=== PATIENT | male | born 1930 | race Caucasian/White ===

== ENCOUNTER 2017-10-20 10:10 | Outpatient (CLI) | payer MEDICARE, BC ==
[2017-10-20] MEDS ORDERED: Iopamidol 370 76% 100 ML VIAL ONE (16:55)
== END 2017-10-20 10:11 | disposition home or self-care (01) ==
LOC: BICCT 10:10
PROVIDERS: ATTEND Family Medicine
DX: R42 Dizziness and giddiness (principal); I65.01 Occlusion and stenosis of right vertebral artery; I67.82 Cerebral ischemia
CPT/HCPCS: 36415; 70496; 82565

== ENCOUNTER 2020-06-21 06:58 | Outpatient (CLI) | payer MEDICARE, BC, OTHER ==
[2020-06-22 12:05] LABS: SARS-CoV-2 MS2 Positive; SARS-CoV-2 N Gene Negative; SARS-CoV-2 S Gene Negative; SARS-CoV-2 by NAA Not Detected (NotDetected); SARS-CoV-2 orf1ab Negative
== END 2020-06-21 06:59 | disposition home or self-care (01) ==
LOC: LABBT 06:58
PROVIDERS: ATTEND Neurological Surgery
DX: M54.12 Radiculopathy, cervical region (principal); Z20.828 Contact with and (suspected) exposure to other viral communicable diseases
CPT/HCPCS: 87635; U0003

== ENCOUNTER 2020-06-26 06:31 | Day surgery (SDC) | payer MEDICARE, BC ==
[2020-06-25 08:52] VITALS: BMI 23.6
--- NOTE | 2020-06-25 22:22 | HP ---
HISTORY OF PRESENT ILLNESS: Mr. Bergman is a very pleasant 89-year-old man referred to us for evaluation by Dr. Hernandez. He and family report that roughly over the last 8 months He has had a steady decline neurologically where over the last couple of months he started to have profound gait unsteadiness with increasing number of falls. 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 He does report numbness in all 4 extremities and weakness in his legs. Dr. Hernandez has been treating him for pain issues. However, MRIs given development of diffuse weakness. MRI of the brain, thoracic and lumbar spine all appeared appropriate with no significant pathology. However, on cervical spine this critically severe cervical spinal stenosis C5-C7 with signal change in the lower levels. This most certainly is the problem. PHYSICAL EXAMINATION: Deferred. PAST MEDICAL HISTORY: Anemia, hypercholesterolemia, arthritis, glaucoma, migraines, hypertension. PAST SURGICAL HISTORY: Unspecified foot surgery, prostate cancer resection, cataract resection, carotid endarterectomy. MEDICATIONS: 1. Simvastatin. 2. Amlodipine. 3. Metoprolol. 4. Famotidine. ALLERGIES: NO KNOWN DRUG ALLERGIES. ASSESSMENT: Cervical myelopathy. PLAN: Dr. Palcaio met with the patient advocated for C5-C7 ACDF. He explained the patient risks, benefits, and alternatives to the procedure. The patient expressed understanding and elected to move forward with surgery as discussed. I do believe the patient is mentally competent and capable of making medical decisions for himself. We will move forward with surgery as planned. Job ID: [id number]
[2020-06-26] MEDS ORDERED: Thrombin 5000 UNITS/5 ML VIAL ONE (07:09)
[2020-06-26 07:11] LABS: #Basophils 0.2 thou/uL (0.0-0.2); #Eosinphils 0.4 thou/uL (0.0-0.7); #Lymphocytes 4.1 thou/uL (1.20-3.40); #Monocytes 0.7 thou/uL (0.11-0.59); #Neutrophils 4.7 thou/uL (1.40-6.50); %Basophils 2.2 % (0.0-1.0); %Eosinophils 3.5 % (0.0-10.0); %Lymphocytes 40.8 % (21.0-51.0); %Monocytes 7.3 % (0.0-10.0); %Neutrophils 46.2 % (42.0-75.0); Hemoglobin 13.5 g/dL (14.0-18.0); Mean Corpuscular HGB CONC 32.1 g/dL (32.0-36.0); Mean Corpuscular Hemoglobin 30.4 pg (27.0-31.0); Mean Corpuscular Volume 94.8 fL (78.0-98.0); Mean Platelet Volume 6.9 fL (7.4-10.4); Platelet Count 209 thou/uL (130-400); RBC Distribution Width 11.7 % (11.5-14.5); Red Blood Cell (RBC) Count 4.46 mill/uL (4.70-6.10); White Blood Cell (WBC) Count 10.1 thou/uL (4.8-10.8)
[2020-06-26 07:34] LABS: Anion Gap 13 mmol/L (10-20); BUN (Urea Nitrogen) 25 mg/dL (8.4-25.7); Calc. Creatinine Clearance 35 mL/min (70-130); Calcium 8.9 mg/dL (7.8-10.44); Carbon Dioxide 27 mmol/L (23-31); Chloride 105 mmol/L (98-107); Estimated GFR-MDRD 50; Glucose 103 mg/dL (83-110); Potassium 3.6 mmol/L (3.5-5.1); Sodium 141 mmol/L (136-145)
[2020-06-26] MEDS ORDERED: Fentanyl 100 MCG/2 ML VIAL ONE ×2 (09:03→10:18)
[2020-06-26] MEDS ORDERED: EPHEDRINE 25 MG/5 ML SYRINGE ONE (09:41)
[2020-06-26] MEDS ORDERED: Dexamethasone 20 MG/5 ML VIAL ONE (09:41)
[2020-06-26] MEDS ORDERED: Ondansetron PF 4 MG/2 ML Vial ONE (09:41)
[2020-06-26] MEDS ORDERED: PROPOFOL 200 MG/20 ML VIAL ONE (09:41)
[2020-06-26] MEDS ORDERED: Rocuronium Bromide 10 MG/ML (10ML VIAL) ONE (09:41)
[2020-06-26] MEDS ORDERED: Lidocaine 1% PF 5 ML VIAL ONE (09:41)
[2020-06-26] MEDS ORDERED: Glycopyrrolate 0.2 MG/ML 5 ML SYRINGE ONE (09:41)
--- NOTE | 2020-06-26 10:20 | OP ---
DATE OF PROCEDURE: 06/26/2020 CABLE ASSEMBLER AND SWAGER: Remi Barrera PA-C INDICATION: Prevent neurologic decline. 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 PROCEDURE PERFORMED: Anterior cervical diskectomy and fusion, C5-C7. ANESTHESIA: General. DESCRIPTION OF PROCEDURE: The patient was brought into the operating room and placed under general anesthesia. He was placed carefully on the table in a neutral position. A transverse incision was planned over the lateral aspect of the neck on the right. After prepping and draping and after an appropriate preoperative pause, the incision was created. The underlying platysma muscles were identified and incised. A blunt tissue plane anterior to the sternocleidomastoid muscle was used to gain access to the prevertebral space. Self-retaining retractors were placed to the wound for optimal exposure. After confirming the appropriate level with C-arm fluoroscopy, an annulotomy was performed in the C6-C7 disk space. Distraction pins were placed at C6 and C7 in the space, placed under slight degree of distraction. After removing the disk material as well as anterior and posterior osteophytes, a 6-mm lordotic PEEK cage packed with allograft and autograft material was placed in the interbody space. We then redirected our attention to level above at C5-C6, where again an annulotomy was performed with distraction pins present. Disk material and anterior and posterior osteophytes were carefully removed until the underlying thecal sac was decompressed. After completing the decompression, a 6-mm lordotic PEEK cage packed with allograft and autograft material was placed in the interbody space. A separate plate was then fashioned for the front of the spine and secured with a total of 6 screws. Midline and lateral structures were inspected and found to be free from significant trauma. The wound was irrigated. Hemostasis was maintained throughout. The wound was then closed in anatomic layers, and a pressure dressing was applied. There were no known procedural complications. Job ID: [id number]
[2020-06-26] MEDS ORDERED: Tamsulosin HCl 0.4 MG CAP ONE (10:30)
[2020-06-26] MEDS ORDERED: HYDROcodone/Acetaminophen 5/325 mg Tablet ONE ×2 (11:58→14:20)
== END 2020-06-26 17:15 ==
LOC: SDC 06:31
PROVIDERS: ATTEND Neurological Surgery
PROC: 0RG20A0 Fusion of 2 or more Cervical Vertebral Joints with Interbody Fusion Device, Anterior Approach, Anterior Column, Open Approach (ICD-10-PCS; principal; 2020-06-26)
PROC: 0RT30ZZ Resection of Cervical Vertebral Disc, Open Approach (ICD-10-PCS; 2020-06-26)
DX: M48.02 Spinal stenosis, cervical region (principal); M47.12 Other spondylosis with myelopathy, cervical region; M47.22 Other spondylosis with radiculopathy, cervical region; E78.00 Pure hypercholesterolemia, unspecified; M19.90 Unspecified osteoarthritis, unspecified site; G43.909 Migraine, unspecified, not intractable, without status migrainosus; I10 Essential (primary) hypertension; Z79.82 Long term (current) use of aspirin; Z79.899 Other long term (current) drug therapy
CPT/HCPCS: 36415; 76000; 80048; 85025; C1713; C1776; J0690; J1100; J2405; J2704; J3010

== ENCOUNTER 2020-10-17 09:53 | Inpatient (IN) | payer MEDICARE, BC ==
[2020-10-17 10:37] LABS: #Basophils 0.1 thou/uL (0.0-0.2); #Eosinphils 0.3 thou/uL (0.0-0.7); #Lymphocytes 3.9 thou/uL (1.20-3.40); #Monocytes 0.7 thou/uL (0.11-0.59); #Neutrophils 7.9 thou/uL (1.40-6.50); %Basophils 0.9 % (0.0-1.0); %Eosinophils 2.2 % (0.0-10.0); %Lymphocytes 30.6 % (21.0-51.0); %Monocytes 5.3 % (0.0-10.0); %Neutrophils 61.1 % (42.0-75.0); Hemoglobin 13.4 g/dL (14.0-18.0); Mean Corpuscular HGB CONC 33.3 g/dL (32.0-36.0); Mean Corpuscular Hemoglobin 32.4 pg (27.0-31.0); Mean Corpuscular Volume 97.2 fL (78.0-98.0); Mean Platelet Volume 7.1 fL (7.4-10.4); Platelet Count 220 thou/uL (130-400); RBC Distribution Width 11.9 % (11.5-14.5); Red Blood Cell (RBC) Count 4.15 mill/uL (4.70-6.10); White Blood Cell (WBC) Count 12.9 thou/uL (4.8-10.8)
[2020-10-17 10:59] LABS: ALT (SGPT) 68 U/L (8-55); AST (SGOT) 35 U/L (5-34); Alkaline Phosphatase 207 U/L (40-110); Anion Gap 13 mmol/L (10-20); BUN (Urea Nitrogen) 25 mg/dL (8.4-25.7); Bilirubin, Total 0.5 mg/dL (0.2-1.2); Calc. Creatinine Clearance 0 mL/min (70-130); Calcium 9.3 mg/dL (7.8-10.44); Carbon Dioxide 28 mmol/L (23-31); Chloride 105 mmol/L (98-107); Globulin 2.9 g/dL (2.4-3.5); Glucose 154 mg/dL (83-110); Potassium 4.5 mmol/L (3.5-5.1); Protein, Total 6.9 g/dL (5.8-8.1); Sodium 141 mmol/L (136-145)
[2020-10-17 11:26] LABS: Bilirubin Negative (Negative); Blood, Urine Negative (Negative); Clarity Clear (Clear); Glucose, Urine (Dipstick) Normal (Negative); Ketone, Urine Negative (Negative); Leukocyte Negative Leu/uL (Negative); Nitrite Negative (Negative); Protein, Urine (Dipstick) 20 mg/dL (Neg-Trace); Urobilinogen Normal mg/dL (Less than 2)
--- NOTE | 2020-10-17 12:42 | CT ---
CT abdomen and pelvis with IV contrast HISTORY: Left lower quadrant pain. Dysuria. FINDINGS: Small sliding hiatal hernia. Mild scarring at each lung base. Prominent calcification throughout the arterial structures. Probable stenosis of the right renal kathryn ry. Calcified granulomata of the liver consistent with healed granulomatous disease. Numerous cysts arise from the cortex of the liver and each kidney, measuring up to 0.9 cm greatest diameter at the medial segment left liver lobe and 3.1 cm the lateral cortex right kidney. Postoperative changes of the prostate bed with the appearance of prior prostatectomy. Large amount of stool throughout the colon. There are distended but not pathologically dilated loops of small bowel throughout the upper abdomen. A fluid-filled loop of distal jejunum extends deep into the left inguinal canal. No significant wall thickening. Small amount of adjacent fluid. The sma ll bowel distal to the hernia is decompressed. IMPRESSION : Low-grade obstruction at an incarcerated left inguinal hernia. Prominent atherosclerosis. Constipation.
[2020-10-17] MEDS ORDERED: Succinylcholine 200 MG/10 ml SYRINGE FS ONE (13:30)
[2020-10-17] MEDS ORDERED: Glycopyrrolate 0.2 MG/ML 5 ML SYRINGE ONE (13:30)
[2020-10-17] MEDS ORDERED: Ondansetron PF 4 MG/2 ML Vial ONE (13:30)
[2020-10-17] MEDS ORDERED: PHENYLEPHRINE-NS 100 MCG/ML 10 ML SYRINGE ONE (13:30)
[2020-10-17] MEDS ORDERED: Dexamethasone 20 MG/5 ML VIAL ONE (13:30)
[2020-10-17] MEDS ORDERED: Rocuronium Bromide 10 MG/ML (10ML VIAL) ONE (13:30)
[2020-10-17] MEDS ORDERED: Lidocaine 1% PF 5 ML VIAL ONE (13:30)
[2020-10-17] MEDS ORDERED: ePHEDrine 50 MG/ML VIAL ONE (13:30)
[2020-10-17] MEDS ORDERED: PROPOFOL 200 MG/20 ML VIAL ONE (13:30)
[2020-10-17] MEDS ORDERED: Piperacillin/Tazobactam 3.375 GM VIAL ONE (13:47)
--- NOTE | 2020-10-17 14:10 | RAD ---
EXAM: Single view of the abdomen HISTORY: NG tube placement COMPARISON: CT abdomen/pelvis 10/17/2020 FINDINGS: Single view of the upper abdomen shows a nonspecific, nonobstructive bowel gas pattern. An NG tube is seen in the stomach. No suspicious calcifications are seen. The bones are unremarkable. IMPRESSION: NG tube located in the stomach
[2020-10-17] MEDS ORDERED: Sodium Chloride 0.9% 1,000 ML IV SCH (14:30)
--- NOTE | 2020-10-17 15:45 | HP ---
CONSULTATIONS ON THE CASE: Dr. Thaddeus Cano, General Surgery. PRIMARY CARE PHYSICIAN: Dr. Alberts. PRIMARY ADVANCED PRACTICE NURSE: Dr. Pina. REASON FOR ADMISSION: "My tummy hurts." HISTORY OF PRESENT ILLNESS: This is a very pleasant 89-year-old male gentleman, who was admitted to the Hospitalist Services today via the emergency room because of days complained of abdominal pain, specifically started at the left lower quadrant area, 8/10 in severity when present, relieved with IV pain medications. According to the patient, he never had this kind of symptoms before. Initially, came early this morning with similar complaints, was sent home with pain medications, but then recurred back as the patient was unable to tolerate the pain associated with nausea and some vomiting. Initial evaluation in the emergency room by the nurse practitioner with a CT of the abdomen and pelvis showed evidence of low-grade obstruction at an incarcerated left inguinal hernia with prominent atherosclerosis , the patient was evaluated in his bedside in the emergency room. At this point of time, except for intermittent pain in his abdomen, no other complaints of chest pain, shortness of breath, fever, rigors, chills, blurring of vision, tingling, numbness, burning micturition, claudication, anxiety, depression, hematuria, hematochezia, cough, expectoration, syncope, seizures, PND, or orthopnea have been noted. PAST MEDICAL HISTORY: 1. Chronic kidney disease. 2. Hyperlipidemia. 3. Anemia of chronic disease. 4. Benign essential hypertension. 5. Right carotid artery stenosis. 6. CKD stage 4, follows up with Dr. Pina. PAST SURGICAL HISTORY: Cataract surgeries in 1991 and 1992, foot surgery in 1989, prostate cancer diagnosed in 1992, cardiac cath done in 1984, colonoscopy in 2015, right-sided neck surgery in 2016 for carotid endarterectomy. FAMILY HISTORY: Father and mother are . Son is alive. Daughter is alive. HOME MEDICATIONS: 1. Centrum 1 tablet daily. 2. Aspirin 81 mg daily. 3. Simvastatin 20 mg daily. 4. Ferrous sulfate 325 mg daily. 5. Norvasc 10 mg daily. 6. Metoprolol succinate 50 mg twice daily. REVIEW OF SYSTEMS: Except as documented, all systems reviewed and negative. PHYSICAL EXAMINATION: GENERAL: This is a very pleasant 89-year-old male gentleman, lying in his hospital bed, not in acute distress. VITAL SIGNS: Blood pressure of 168/72 mmHg, heart rate of 80 per minute, respiratory rate of 16 per minute, saturation 100% on room. Has an airway, which is clear. HEENT: Atraumatic, normocephalic. NECK: Supple. No bruit. No lymphadenopathy. CVS: S1, S2. No abnormal rhythms or murmurs. CHEST: Bilateral air entry present. No rhonchi. No wheezes. ABDOMEN: Soft, nontender. Bowel sounds decreased but present. EXTREMITIES: No cyanosis. No edema. No icterus. No pallor. NEUROLOGIC: The patient is alert, oriented x3. No focal motor or sensory deficits noted. HEME: No ecchymosis or petechiae. PSYCH: No depression or anxiety. DIAGNOSTIC STUDIES: WBC is 12.9, hemoglobin 13.4, hematocrit 40.3, platelets are 220. Sodium 141, potassium 4.5, chloride 105, carbon dioxide 28, anion gap is 13, BUN 25, creatinine 1.29, total bilirubin 0.5, AST 35, ALT 68, alkaline phosphatase is 207. Urinalysis has been reviewed. CT of the abdomen and pelvis has been reviewed. Chest x-ray has been reviewed. ASSESSMENT: 1. Low-grade obstruction at an incarcerated left inguinal hernia. The patient currently n.p.o. except for ice chips and medications. We have consulted Dr. Thaddeus Cano, General Surgery. 2. Chronic kidney disease stage 4, the patient follows up with Dr. Pina, currently optimized and stable. 3. Chronic constipation. 4. Benign essential hypertension, on antihypertensives. 5. Hyperlipidemia, on statins. 6. History of prostate cancer. 7. History of cervical vertebral compression with eventual surgery. At the same time, the patient had a right carotid endarterectomy. PLAN: Discussed in detail about the diagnosis, treatment, and followup with the patient as well as the patient's who was present at bedside. Advised about keeping the patient n.p.o. except for ice chips and medications. We will closely monitor and optimize the patient's blood pressure at this point of time. DVT prophylaxis would be mechanical as the patient could be a surgical candidate at this point of time. We will continue to closely monitor the patient on Med/Surgical floor and follow official general surgical evaluation. Advanced directives, full code. The patient's MPOA is his . Discharge planning will depend on further surgical course and recommendations. Job ID: [id number] MTDD
[2020-10-17 16:30] VITALS: BMI 23.0
--- NOTE | 2020-10-17 16:35 | CON ---
DATE OF CONSULTATION: 10/17/2020 CHIEF COMPLAINT: Abdominal pain. HISTORY OF PRESENT ILLNESS: An 89-year-old male, past medical history of hypertension, prostate cancer, carotid stenosis, arthritis, glaucoma, migraine, anemia. Presents with abdominal pain for one day. The patient had abdominal pain started 6:00 a.m. this morning. The patient is trying to have a bowel movement and had excruciating pain.The patient was unable to get comfortable after going to the bathroom, having difficulty urinating. The patient's brought him into the emergency department. The patient denies fever, shortness of breath, chest pain, loss of consciousness. CT scan shows incarcerated left inguinal hernia. NG tube was placed at bedside with brown output. REVIEW OF SYSTEMS: Negative except for above. PAST MEDICAL HISTORY: Anemia, arthritis, glaucoma, migraines, hypertension, carotid stenosis. PAST SURGICAL HISTORY: Prostatectomy 30 years ago, polypectomy 03/14/2016, carotid artery endarterectomy 03/14/2016, fusion of the cervical spine at C5 to C7. MEDICATIONS: 1. Simvastatin. 2. Metoprolol. 3. Famotidine. Allergies No know allergies PHYSICAL EXAMINATION: VITAL SIGNS: Heart rate is 60, blood pressure 130/80, respiratory rate 20, O2 saturation 98%. GENERAL: No acute distress, sitting upright in bed. HEENT: Head; normocephalic, atraumatic. CARDIOVASCULAR: Regular rate and rhythm. RESPIRATORY: Breathing on room air. No respiratory distress. ABDOMEN: Midline incision under umbilicus. No inguinal scars. Abdomen is soft, nontender. No indirect hernia appreciated on physical exam. NEURO: The patient is A and O x4. MSK: Moving upper and lower extremities bilaterally.Sensation intact ASSESSMENT: 82 y/o male SBO, CT shows partial incarcerated left inguinal hernia. NG tube minimal output, abdominal exam unremarkable for direct or indirect, the hernia may have spontaneous reduced. Further imaging is warranted. PLAN: 1. Small bowel follow through.Serial abdominal exams, notify trauma if patient develops peritonitis. 2. Morning labs, BMP, lactic acid. 3. PT/OT. Appreciate medicine level of care. Patient was seen and examined with , agrees with plan. The patient was seen at bedside with Dr. Cano, who agrees with the plan. Job ID: [id number] [facility]
[2020-10-17] MEDS ORDERED: Morphine 4 MG/ML VIAL SLOW IVP PRN (17:42)
[2020-10-17] MEDS ORDERED: Iopamidol-370 76% 500 ML 1 ML ONE (17:54)
[2020-10-17] MEDS: Sodium Chloride 0.9% 1,000 ML IV SCH (18:11)
[2020-10-17 19:03] LABS: Lactic Acid 1.4 mmol/L (0.5-2.2)
[2020-10-17] MEDS ORDERED: EPINEPHrine 1 MG/ML AMP ONE (19:17)
[2020-10-17] MEDS ORDERED: Bupivacaine 0.25% HCL 30 ML VIAL ONE (19:17)
[2020-10-17] MEDS ORDERED: Fentanyl 100 MCG/2 ML VIAL ONE (19:27)
--- NOTE | 2020-10-17 19:37 | RAD ---
SMALL BOWEL FOLLOW THROUGH: 10/17/20 PROVIDED CLINICAL HISTORY: Small bowel obstruction. FINDINGS: Correlation is made with the radiograph and CT performed earlier same date. The sewage treatment plant operator radiograph agai n demonstrates multiple gas filled loops of small bowel overlying the left abdomen. Contrast material is seen within the urinary bladder. Multiple surgical clips. Prominent right hemicolonic fecal reten tion. NG tube tip overlies the central mid abdomen. Following the administration of contrast material through the NG tube, there is opacification of multiple ectatic loops of the stomach and multiple ec tatic loops of proximal small bowel. Contrast material is not seen distal to this small bowel at the three hour elsy, at which time the ordering clinician requested the examination terminated. IMPRESSION: Contrast material does not transit passed the proximal small bowel on the three hour film, compatible with the previously described small bowel obstruction. POS: JON
[2020-10-17 20:27] LABS: SARS-CoV-2 NAA Rapid Test Not Detected (NotDetected)
[2020-10-17] MEDS ORDERED: Amlodipine 10 MG TAB PO SCH (21:00)
[2020-10-17] MEDS ORDERED: Atorvastatin Calcium 40 MG TAB PO SCH (21:00)
[2020-10-17] MEDS ORDERED: Promethazine HCl 25 MG/ML VIAL SLOW IVP PRN (21:13)
[2020-10-17] MEDS ORDERED: Meperidine HCl/PF 25 MG/ML VIAL SLOW IVP PRN (21:13)
[2020-10-17] MEDS ORDERED: Ondansetron HCl/PF 4 MG/2 ML Vial IVP PRN (21:13)
--- NOTE | 2020-10-17 22:36 | OP ---
DATE OF PROCEDURE: 10/17/2020 PREOPERATIVE DIAGNOSIS: Acute incarcerated left inguinal hernia. POSTOPERATIVE DIAGNOSIS: Acute incarcerated left inguinal hernia, indirect. PROCEDURE PERFORMED: Repair of incarcerated left inguinal hernia with medium size PerFix light plug mesh. ANESTHESIA: General endotracheal. ESTIMATED BLOOD LOSS: 5 mL. FLUIDS GIVEN: 600 mL crystalloids. COUNTS: Sponge and instrument counts were verified correct x2. COMPLICATIONS: None apparent at the time of operation. INDICATIONS FOR OPERATION: This is an 89-year-old man, who presented with acute onset of left groin pain after Valsalva, trying to have a bowel movement. Clinical and radiographic examination were consistent with acute incarcerated left inguinal hernia, for which the patient was brought to the operating room for inguinal herniorrhaphy. Findings are consistent with a medium-size hernia sac with incarcerated loop of small bowel, which upon reduction appeared viable. DESCRIPTION OF OPERATION: Informed consent was obtained from the patient, who was brought to the operating room, placed in the supine position. Following general anesthesia, the lower abdomen was sterilely prepped and draped in usual fashion. The left oblique incision was made using 10 scalpel. Incision was carried through subcutaneous tissues maintaining hemostasis using cautery. Paulo's fascia was incised along the line of incision. This was bluntly dissected exposing the external oblique aponeurosis, which was opened with a scalpel along the running fibers. The hernia sac and cord structures were dissected off surrounding tissues and encircled at the pubic tubercle using a Sheron drain. The hernia sac was medial to cord and structures. This was dissected free. Care taken to avoid injuries to the cord and structures. The sac was opened and small bowel was examined. This appeared viable and was reduced into the peritoneal cavity without incident. The sac was then twisted and ligated between the clamps at the high inguinal position. This was achieved using first a stick tie of 3-0 Vicryl, then doubly ligated with a free tie of 3-0 Vicryl. Medium-size PerFix plug mesh was then placed in the internal ring and sutured to the internal oblique aponeurosis using interrupted sutures of 3-0 nylon. The elliptical mesh was then brought to the operative field. The apex was sutured to the pubic tubercle and laterally to the shelving portion of the external oblique aponeurosis and medially to the internal oblique aponeurosis. Once the mesh was secured into place using a running stitch of 2-0 Prolene, the left testicle was reduced to the scrotum. External oblique aponeurosis was then approximated over cord and structures using a running stitch of 2-0 Prolene. Paulo's fascia was approximated using interrupted sutures of 3-0 Vicryl. Skin incision was closed using a running stitch of 4-0 Monocryl suture in subcuticular fashion. Dermabond was applied over incisional closure. The patient tolerated the operation without any apparent complication and was returned to recovery room in satisfactory condition. Job ID: [id number]
[2020-10-18] MEDS: Metoprolol Tartrate 50 MG TAB PO SCH ×2 (00:09→08:27)
[2020-10-18] MEDS: Sodium Chloride 0.9% 1,000 ML IV SCH ×2 (03:38→13:51)
[2020-10-18 05:22] LABS: #Basophils 0.1 thou/uL (0.0-0.2); #Lymphocytes 2.8 thou/uL (1.20-3.40); #Monocytes 0.8 thou/uL (0.11-0.59); #Neutrophils 14.2 thou/uL (1.40-6.50); %Basophils 0.7 % (0.0-1.0); %Eosinophils 0.1 % (0.0-10.0); %Lymphocytes 15.6 % (21.0-51.0); %Monocytes 4.2 % (0.0-10.0); %Neutrophils 79.5 % (42.0-75.0); Hemoglobin 12.5 g/dL (14.0-18.0); Mean Corpuscular HGB CONC 32.5 g/dL (32.0-36.0); Mean Corpuscular Volume 95.4 fL (78.0-98.0); Mean Platelet Volume 7.4 fL (7.4-10.4); Platelet Count 210 thou/uL (130-400); RBC Distribution Width 11.8 % (11.5-14.5); Red Blood Cell (RBC) Count 4.04 mill/uL (4.70-6.10); White Blood Cell (WBC) Count 17.9 thou/uL (4.8-10.8)
[2020-10-18 05:23] LABS: Phosphorus 4.3 mg/dL (2.3-4.7)
[2020-10-18 05:24] LABS: ALT (SGPT) 52 U/L (8-55); AST (SGOT) 25 U/L (5-34); Albumin 3.5 g/dL (3.4-4.8); Alkaline Phosphatase 179 U/L (40-110); Anion Gap 13 mmol/L (10-20); BUN (Urea Nitrogen) 21 mg/dL (8.4-25.7); Bilirubin, Total 0.4 mg/dL (0.2-1.2); Calc. Creatinine Clearance 36 mL/min (70-130); Calcium 8.7 mg/dL (7.8-10.44); Carbon Dioxide 25 mmol/L (23-31); Chloride 108 mmol/L (98-107); Globulin 2.7 g/dL (2.4-3.5); Glucose 145 mg/dL (83-110); Potassium 4.3 mmol/L (3.5-5.1); Protein, Total 6.2 g/dL (5.8-8.1); Sodium 142 mmol/L (136-145)
[2020-10-18] MEDS ORDERED: Sodium Chloride 0.9% 500 ML IV SCH (07:45)
[2020-10-18] MEDS ORDERED: Enoxaparin Sodium 40 MG/0.4 ML SYRINGE SC SCH (09:00)
[2020-10-18] MEDS ORDERED: Senokot 8.6 MG TAB PO PRN (10:30)
[2020-10-18] MEDS ORDERED: traMADol HCl 50 MG TAB PO PRN (10:30)
[2020-10-18] MEDS ORDERED: traMADol HCl 50 MG TAB PO SCH ×2 (12:00→14:00)
[2020-10-18] MEDS ORDERED: Tamsulosin HCl 0.4 MG CAP PO SCH (14:15)
--- NOTE | 2020-10-18 15:43 | PDOC.HOSPP ---
- Subjective Encounter Date: 10/18/20 Encounter Time: 15:41 Subjective: Mr. Bergman was seen today in follow-up of inguinal hernia. He does not have any complaints. - Objective Vital Signs & Weight: Vital Signs (12 hours) Temp Pulse Resp BP Pulse Ox 10/18/20 11:14 99.0 F 62 14 144/66 H 97 10/18/20 07:47 97.5 F L 75 14 121/68 97 10/18/20 04:39 97.4 F L 76 12 161/65 H 95 Weight Weight 147 lb I&O: 10/17/20 10/18/20 10/19/20 06:59 06:59 06:59 Intake Total 1000 600 Output Total 1800 Balance -800 600 Result Diagrams: 10/18/20 04:29 10/18/20 04:29 Hospitalist ROS - Medication Medications: Active Medications Generic Name Dose Route Start Last Admin Trade Name Freq PRN Reason Stop Dose Admin Amlodipine Besylate 5 mg 10/17/20 21:00 10/18/20 00:09 Amlodipine 10 Mg Tab PO Not Given HS LATRELL Atorvastatin Calcium 40 mg 10/17/20 21:00 10/18/20 00:09 Atorvastatin Calcium 40 Mg Tab PO Not Given HS LATRELL Enoxaparin Sodium 40 mg 10/18/20 09:00 10/18/20 08:27 Enoxaparin Sodium 40 Mg/0.4 Ml Syringe SC 40 mg 0900 LATRELL Administration Metoprolol Tartrate 25 mg 10/17/20 21:00 10/18/20 08:27 Metoprolol Tartrate 50 Mg Tab PO 25 mg BID LATRELL Administration Sodium Chloride 10 ml 10/18/20 09:00 10/18/20 09:58 Flush - Normal Saline 10 Ml Syringe IVF Not Given Q12HR LATRELL Tamsulosin HCl 0.4 mg 10/18/20 14:15 10/18/20 15:07 Tamsulosin Hcl 0.4 Mg Cap PO 10/18/20 16:15 0.4 mg NOW LATRELL Administration Tramadol HCl 50 mg 10/18/20 14:00 10/18/20 13:53 Tramadol Hcl 50 Mg Tab PO 50 mg 0200,0800,1400,2000 LATRELL Administration Hospitalist Exam Vitals: Vital Signs (12 hours) Temp Pulse Resp BP Pulse Ox 10/18/20 11:14 99.0 F 62 14 144/66 H 97 10/18/20 07:47 97.5 F L 75 14 121/68 97 10/18/20 04:39 97.4 F L 76 12 161/65 H 95 Weight Weight 147 lb General Appearance: NAD Eye: PERRL, anicteric sclera Heart: RRR, no murmur, no gallops, no rubs, normal peripheral pulses Respiratory: CTAB, no wheezes, no rales, no ronchi, normal chest expansion, no tachypnea, normal percussion Gastrointestinal: soft, non-tender, non-distended, normal bowel sounds, no palpable masses, no hepatomegaly Extremities: no cyanosis, no edema Hosp A/P (1) Inguinal hernia, left Code(s): K40.90 - UNIL INGUINAL HERNIA, W/O OBST OR GANGR, NOT SPCF RECUR Status: Acute (2) Hypertension Code(s): I10 - ESSENTIAL (PRIMARY) HYPERTENSION Status: Chronic - Plan * Inguinal hernia- s/p repair. He is clinically stable * HTN- blood pressure is borderline- re-start home medications * Stable for discharge home.
[2020-10-18 16:03] VITALS: BP 154/70; TEMP 97.4
--- NOTE | 2020-10-18 16:10 | DIS ---
DATE OF ADMISSION: 10/17/2020 DATE OF DISCHARGE: 10/18/2020 ADMISSION DIAGNOSIS: Incarcerated inguinal hernia, indirect. DISCHARGE DIAGNOSIS: Incarcerated inguinal hernia, indirect. CONSULTING PHYSICIAN: None. PROCEDURES: The patient went to the OR on October 17, 2020, and had a repair of incarcerated left inguinal hernia with medium size mesh. HOSPITAL COURSE: The patient is an 89-year-old male, who presented to the emergency department with abdominal pain. Initial CT evaluation demonstrated concern for small bowel obstruction secondary to incarcerated inguinal hernia. NG tube was placed and the patient received a small bowel follow-through. Subsequently, his abdominal pain did not improve and Dr. Cano took him to the OR for repair of the left inguinal hernia with mesh. Postoperatively, he received some IV fluid resuscitation, ultimately tolerated a clear liquid diet. He also ambulated with physical therapy and was passing gas before discharge. The patient worked with home physical therapy usually, and we will continue those orders as he is quite old. At the time of discharge, the patient's pain was well controlled. DISCHARGE DISPOSITION: Home. DISCHARGE CONDITION: Satisfactory. PHYSICAL EXAMINATION: VITAL SIGNS: Temperature 99.0, pulse 62, respirations 14, oxygen saturation 97% on room air, blood pressure 144/66. GENERAL: Well-appearing elderly male, sitting up in bed with no signs of acute distress. PULMONARY: Equal chest rise and fall. No signs of acute respiratory distress. CARDIAC: Regular rate and rhythm. ABDOMEN: Soft, appropriately and mildly tender to palpation. Nondistended. EXTREMITIES: 2+ pulses in all extremities. Gross motor and sensation intact. No significant swelling noted. NEURO: GCS is 15. DISCHARGE INSTRUCTIONS: The patient was discharged home. Activity as tolerated. Regular diet. He will have home physical therapy with a walker. DISCHARGE MEDICATIONS: Include, 1. Aspirin. 2. Atorvastatin. 3. Pepcid. 4. Advil. 5. Lisinopril. 6. Centrum. 7. Tramadol. 8. Benefiber. FOLLOWUP APPOINTMENTS: The patient is to follow up with Dr. Cano on October 31, 2020 at 10:30 a.m. The patient is also to follow up with his PCP on October 23 as a previous appointment has been made. This is a summary of the patient's hospitalization. For full details, please see his medical record in its entirety. The patient was seen and evaluated by myself and Dr. Cano on the day of discharge. The [place] prescription monitoring program was accessed and the patient was discharged home on pain medications that were deemed safe and appropriate as these medications were used to control his pain. Job ID: [id number]
[2020-10-18] MEDS ORDERED: Senokot 8.6 MG TAB PO SCH (21:00)
[2020-10-18] MEDS ORDERED: Docusate 100 MG CAP PO SCH (21:00)
--- NOTE | 2020-10-19 05:40 | PRG ---
DATE OF SERVICE: 10/18/2020 SUBJECTIVE: An 89-year-old male, postop day 1 from open left inguinal hernia repair. The patient is recovering on the surgical floor well, the patient was started on clear liquid diet today. The patient is spontaneously voiding. The pain was well controlled. OBJECTIVE: VITAL SIGNS: Temperature is 99, pulse 62, respiratory rate 14, O2 97, and blood pressure 144/66. GENERAL: The patient is sitting up, in no acute distress. Speaking full sentences. HEAD: NC/AT. CARDIOVASCULAR: Regular rate and rhythm. RESPIRATORY: Equal breath sounds bilaterally on room air. ABDOMEN: Oblique incision, left groin, C/L/I. No erythema or edema at incision site, no hernia on exam. NEUROLOGIC: GCS 15. MSK: Moving upper and lower extremities bilaterally. ASSESSMENT: 82-year-old male, status post small bowel obstruction seen on CT. Postop day 1 left inguinal hernia repair. The patient started on clear liquid diet and pain was well controlled. PLAN: Advance diet as tolerated. PT/OT. Discharge the patient when bowel function returns and pain is controlled. Plan discussed. The patient was seen and examined Dr. Cano on the morning rounds and he agrees with the plan. Job ID: [id number]
[2020-10-19] MEDS ORDERED: Tamsulosin HCl 0.4 MG CAP PO SCH (09:00)
== END 2020-10-18 16:45 | disposition home or self-care (01) | DRG 351 ==
LOC: ERS 09:53 → ERHOLD 13:49 → 3SE 16:01 → SURG A 22:23
PROVIDERS: ADMIT Internal Medicine; ATTEND Internal Medicine
PROC: 0YU60JZ Supplement Left Inguinal Region with Synthetic Substitute, Open Approach (ICD-10-PCS; principal; 2020-10-17)
DX: K40.30 Unilateral inguinal hernia, with obstruction, without gangrene, not specified as recurrent (principal); N18.4 Chronic kidney disease, stage 4 (severe); I12.9 Hypertensive chronic kidney disease with stage 1 through stage 4 chronic kidney disease, or unspecified chronic kidney disease; E78.5 Hyperlipidemia, unspecified; Z20.822 Contact with and (suspected) exposure to COVID-19; K59.09 Other constipation; D63.1 Anemia in chronic kidney disease; Z98.890 Other specified postprocedural states; Z85.46 Personal history of malignant neoplasm of prostate; Z79.82 Long term (current) use of aspirin; Z98.42 Cataract extraction status, left eye; Z98.41 Cataract extraction status, right eye; Z79.899 Other long term (current) drug therapy
CPT/HCPCS: 36415; 74018; 74177; 74250; 80053; 81003; 83605; 83735; 84100; 85025; 87086; 88302; 96365; C1781; J0171; J1100; J1650; J2270; J2405; J2543; J2704; J3010; J3490; Q9967; S0020; U0002

== ENCOUNTER 2020-11-21 10:50 | Outpatient (CLI) | payer MEDICARE, BC | END 2020-11-21 10:51 | disposition home or self-care (01) | LOC: BICULT 10:50 | PROVIDERS: ATTEND Family Medicine | DX: R74.01 Elevation of levels of liver transaminase levels (principal) | CPT/HCPCS: 93975 ==